=== PATIENT | male | born 1950 | race Caucasian/White ===

== ENCOUNTER 2019-08-28 09:12 | Emergency (ER) | payer OTHER ==
[2019-08-28] MEDS ORDERED: GLYBURID MCR1.5 MG PO (09:23)
[2019-08-28] MEDS ORDERED: JARDIANCE10 MG PO (09:23)
[2019-08-28] MEDS ORDERED: TAMSULOSIN HCL0.4 MG PO (09:23)
[2019-08-28] MEDS ORDERED: PERINDOPRIL PO (09:24)
[2019-08-28] MEDS ORDERED: PROAIR HFA108 MCG/AC PO (09:49)
[2019-08-28] MEDS ORDERED: DOXYCYCL HYC100 M4 PO (09:49)
[2019-08-28 10:18] VITALS: BP 134/84
== END 2019-08-28 10:27 | disposition home or self-care (01) | DRG 203 ==
LOC: ED 09:12
DX: J40 Bronchitis, not specified as acute or chronic (principal); E11.9 Type 2 diabetes mellitus without complications; Z79.84 Long term (current) use of oral hypoglycemic drugs

== ENCOUNTER 2019-09-19 | Emergency (ER) | payer OTHER ==
[~2019-09-19] MED LIST: DOXYCYCL HYC100 M4 PO; GLYBURID MCR1.5 MG PO; JARDIANCE10 MG PO; PERINDOPRIL PO; PROAIR HFA108 MCG/AC PO; TAMSULOSIN HCL0.4 MG PO
[2019-09-19] MEDS ORDERED: JANUMET1 TA1 PO (09:33)
[2019-09-19 10:03] LABS: HEMATOCRIT 31.4 % (39.0-50.0); HEMOGLOBIN 10.7 g/dl (14.0-18.0); IMMATURE GRANULOCYTES 0.4 % (0.0-5.0); MEAN CELL VOLUME 90.2 fL CALC (80.0-100.0); MEAN CORPUSCULAR HGB 30.7 pG CALC (26.0-32.0); MEAN CORPUSCULAR HGB CONC 34.1 g/L CALC (32.0-36.0); NEUT# 6.64 thou/uL (1.82-7.42); RED BLOOD COUNT 3.48 mill/uL (4.70-6.10); RED CELL DISTRI WIDTH 12.7 % (11.5-15.5)
[2019-09-19] MEDS ORDERED: ASPIRIN PO (10:11)
[2019-09-19] MEDS ORDERED: [UNRECOGNIZED DRUG - OTHER] PO (10:12)
[2019-09-19] MEDS ORDERED: PERINDOPRIL PO (10:14)
[2019-09-19] MEDS ORDERED: INDAPAMIDE PO (10:14)
[2019-09-19 10:22] LABS: ACT PARTIAL THROMBO TIME 21.3 SECONDS (20.0-32.5); PROTHROMBIN TIME 10.7 SECONDS (9.0-12.5)
[2019-09-19 10:24] LABS: ALBUMIN 3.8 g/dL (3.2-5.0); ALKALINE PHOSPHATASE 38 u/l (38-126); ANION GAP 13 (6-22 (CALC)); BILIRUBIN, TOTAL 0.4 mg/dL (0.0-1.4); BUN 26 mg/dL (8-23); BUN/CREATININE RATIO 32 (12-20 (CALC)); CARBON DIOXIDE 25 mmol/l (22-30); CHLORIDE 101 mmol/l (95-108); CREATININE 0.8 mg/dL (0.7-1.3); GFR > 60 ML/MIN (>=60 (CALC)); GFR FOR AFR.AMER. > 60 ML/MIN (>=60 (CALC)); LIPASE 196 u/l (23-300); POTASSIUM 4.1 mmol/l (3.5-5.1); SGOT/AST 24 u/l (19-48); SODIUM 135 mmol/l (137-146); TOTAL PROTEIN 6.3 g/dL (6.3-8.2)
== END 2019-09-19 10:32 | disposition short-term general hospital (02) | DRG 379 ==
DX: K92.2 Gastrointestinal hemorrhage, unspecified (principal); I10 Essential (primary) hypertension; E11.9 Type 2 diabetes mellitus without complications; Z90.49 Acquired absence of other specified parts of digestive tract